=== PATIENT | female | born 1990 | race African-American/Black ===

== ENCOUNTER 2022-02-08 00:21 | Emergency (ER) | payer SELFPAY ==
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
--- NOTE | ~2022-02-08 | XR_ITS ---
EXAMINATION: XR HAND, LEFT XR HAND, RIGHT CLINICAL INFORMATION: Pain COMPARISON: None TECHNIQUE: 3 views of each hand FINDINGS: Left hand: No fracture or dislocation. Alignment is anatomic. Joint spaces are maintained. The soft tissues are unremarkable. Right hand: No fracture or dislocation. Alignment is anatomic. Joint spaces are maintained. The soft tissues are unremarkable. XR/XR hand LT min 3V IMPRESSION: Normal appearance of both hands.
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
--- NOTE | ~2022-02-08 | XR_ITS ---
EXAMINATION: XR HAND, LEFT XR HAND, RIGHT CLINICAL INFORMATION: Pain COMPARISON: None TECHNIQUE: 3 views of each hand FINDINGS: Left hand: No fracture or dislocation. Alignment is anatomic. Joint spaces are maintained. The soft tissues are unremarkable. Right hand: No fracture or dislocation. Alignment is anatomic. Joint spaces are maintained. The soft tissues are unremarkable. XR/XR hand RT min 3V IMPRESSION: Normal appearance of both hands.
[2022-02-08 00:27] VITALS: BP 128/75; PULSE 98
[2022-02-08 01:13] VITALS: BP 132/90; PULSE 80; RESP 19; TEMP 36.9; O2SAT 98; BMI 29.2
[2022-02-08 02:14] LABS: Appearance Urine Clear; Color Urine Yellow; Glucose Urine UA Negative (Negative); Leukocyte Esterase Urine Negative (Negative); Nitrite Urine Negative (Negative); PH 6.5 (5.0-8.0); Specific Gravity - Urine <= 1.005 (1.005-1.025); Urine Blood Negative (Negative); Urine Ketones Negative (Negative); Urine Protein Negative (Neg-Trace)
[2022-02-08 02:35] LABS: UPreg QC Valid YES; Urine Pregnancy NEGATIVE (NEGATIVE)
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
[2022-02-08] MEDS: Acetaminophen 325 MG TABLET 975 MG PO (04:44)
[2022-02-08] MEDS: Ibuprofen 400 MG TABLET PO (04:44)
[2022-02-08 04:45] VITALS: BP 119/88; PULSE 66; RESP 16; O2SAT 99
== END 2022-02-08 04:54 | disposition home or self-care (01) ==
PROVIDERS: Physician Assistant; Emergency Provider Student in an Organized Health Care Education/Training Program
DX: Z04.1 Encounter for examination and observation following transport accident (principal); M79.18 Myalgia, other site
CPT/HCPCS: 70450; 72125; 73130; 81003; 81025; 99284